=== PATIENT | male | born 1965 | race Caucasian/White ===

== ENCOUNTER 2018-07-11 21:19 | Inpatient (IN) | payer OTHER ==
[2018-07-11 23:41] LABS: ADD MAN DIFF? NO
[2018-07-11 23:43] LABS: ABNORMAL IP MESSAGE 1; BASOPHIL # 0.1 10^3/ul (0.0-0.1); BASOPHILS % 0.3 % (0.0-2.0); EOSINOPHILS # 0.2 10^3/ul (0.0-0.5); EOSINOPHILS % 0.9 % (0.0-7.0); HEMATOCRIT 37.1 % (42.0-52.0); HEMOGLOBIN 12.9 g/dl (14.0-18.0); LYMPHOCYTES # 1.7 10^3/ul (0.8-2.9); LYMPHOCYTES % 7.3 % (15.0-51.0); MEAN CORPUSCULAR HEMOGLOBIN 29.9 pg (29.0-33.0); MEAN CORPUSCULAR HGB CONC 34.8 g/dl (32.0-37.0); MEAN CORPUSCULAR VOLUME 85.9 fl (82.0-101.0); MEAN PLATELET VOLUME 9.6 fl (7.4-10.4); MONOCYTE # 1.8 10^3/ul (0.3-0.9); MONOCYTES % 7.9 % (0.0-11.0); NEUTROPHILS % 82.6 % (39.0-77.0); PLATELET COUNT 315 10^3/UL (140-415); POSITIVE DIFF @See below; RED BLOOD COUNT 4.32 10^6/ul (4.70-6.10); RED CELL DISTRIBUTION WIDTH 12.5 % (11.5-14.5)
[2018-07-11 23:47] LABS: INR 1.22; PROTIME 15.6 Sec (11.9-14.9); PT RATIO 1.2
[2018-07-11] MEDS: SODIUM CHLORIDE 0.9% 1L BAG IV* (23:47)
[2018-07-11 23:48] LABS: PARTIAL THROMBOPLASTIN TIME 34.5 Sec (23.0-35.0)
[2018-07-11] MEDS: CEFEPIME 2GM/50 ML (PMX) 50 ML IVPB (23:48)
[2018-07-11 23:49] LABS: ALANINE AMINOTRANSFERASE 16 IU/L (13-69); ALBUMIN 3.4 g/dl (3.3-4.9); ALBUMIN/GLOBULIN RATIO 0.89; ALKALINE PHOSPHATASE 103 IU/L (42-121); ANION GAP 17 (8-16); ASPARTATE AMINO TRANSFERASE 18 IU/L (15-46); BILIRUBIN,INDIRECT 0.6 mg/dl (0-1.1); BILIRUBIN,TOTAL 0.6 mg/dl (0.2-1.3); BLOOD UREA NITROGEN 16 mg/dl (7-20); CALCIUM 9.8 mg/dl (8.4-10.2); CARBON DIOXIDE 23 mmol/L (21-31); CHLORIDE 97 mmol/L (97-110); CREATININE 0.76 mg/dl (0.61-1.24); GLUCOSE 316 mg/dl (70-220); POTASSIUM 3.8 mmol/L (3.5-5.1); SODIUM 133 mmol/L (135-144); TOTAL PROTEIN 7.2 g/dl (6.1-8.1)
[2018-07-11 23:53] LABS: LACTIC ACID 1.5 mmol/L (0.5-2.0)
[2018-07-12] LABS: TROPONIN-I < 0.012 ng/ml (0.000-0.120)
[2018-07-12 01:02] LABS: ADD UMIC NO; UR ASCORBIC ACID NEGATIVE (NEGATIVE); UR BILIRUBIN (Dip) NEGATIVE (NEGATIVE); UR BLOOD (Dip) NEGATIVE (NEGATIVE); UR CLARITY CLEAR (CLEAR); UR COLOR YELLOW (YELLOW); UR GLUCOSE (Dip) 3+ mg/dL (NEGATIVE); UR KETONES (Dip) NEGATIVE (NEGATIVE); UR LEUKOCYTE ESTERASE (Dip) NEGATIVE Leu/ul (NEGATIVE); UR NITRITE (Dip) NEGATIVE (NEGATIVE); UR SPECIFIC GRAVITY (Dip) 1.017 (1.003-1.030); UR TOTAL PROTEIN (Dip) NEGATIVE (NEGATIVE); UR UROBILINOGEN (Dip) 1+ mg/dL (NEGATIVE)
[2018-07-12 02:00] LABS: LACTIC ACID 1.5 mmol/L (0.5-2.0)
[2018-07-12 03:45] LABS: LACTIC ACID 1.3 mmol/L (0.5-2.0)
[2018-07-12] MEDS: LIDOCAINE 2% JELLY 30 ML TOP (05:48)
[2018-07-12] MEDS: morphine 4 MG/ML VIAL IV (05:48)
[2018-07-12] MEDS: AZITHROMYCIN 500MG/NS (PMX) 250 ML IVPB (07:43)
[2018-07-12] MEDS ORDERED: ONDANSETRON 4 MG INJ IV (10:30)
[2018-07-12] MEDS ORDERED: ZOLPIDEM 5 MG TAB PO (10:30)
[2018-07-12] MEDS: ACCU-CHEK XX ×3 (11:30→20:40)
[2018-07-12] MEDS ORDERED: DEXTROSE 50% 50 ML SYRINGE IV ×2 (13:00)
[2018-07-12] MEDS ORDERED: GLUCAGON 1 MG INJ IM (13:00)
[2018-07-12] MEDS ORDERED: GLUCOSE GEL 15 GRAM TUBE BUCCAL (13:00)
[2018-07-12] MEDS ORDERED: GLUCOSE GEL 15 GRAM TUBE PO ×2 (13:00)
[2018-07-12] MEDS: CEFTRIAXONE 1 GM/50 ML (PMX) 50 ML IVPB (14:24)
[2018-07-12] MEDS: SOD CHLORIDE 0.9% 1,000 ML IV ×3 (14:24→23:43)
[2018-07-12] MEDS ORDERED: PIOGLITAZONE 45 MG TAB PO (14:30)
[2018-07-12] MEDS: DOCUSATE SODIUM 100 MG CAP PO ×2 (15:08→20:40)
[2018-07-12] MEDS: PIOGLITAZONE 15 MG TAB PO (15:10)
[2018-07-12] MEDS: AMLODIPINE 5 MG TAB PO (15:11)
[2018-07-12] MEDS: BENAZEPRIL 40 MG TAB PO (15:11)
[2018-07-12] MEDS: ACETAMINOPHEN 325 MG TAB PO (15:15)
[2018-07-12] MEDS: metFORMIN 500 MG TAB PO (17:23)
[2018-07-12] MEDS: FAMOTIDINE 20 MG TAB PO (20:40)
[2018-07-12] MEDS: HYDROCODONE/APAP (5/325) TAB PO (21:42)
[2018-07-13] MEDS: ACETAMINOPHEN 325 MG TAB PO ×3 (03:19→17:55)
[2018-07-13] MEDS: HYDROCODONE/APAP (5/325) TAB PO ×2 (04:29→06:24)
[2018-07-13] MEDS ORDERED: HYDROCODONE/APAP (5/325) TAB PO (06:00)
[2018-07-13 06:23] LABS: ADD MAN DIFF? NO
[2018-07-13 06:27] LABS: WHITE BLOOD COUNT 19.1 10^3/ul (4.8-10.8)
[2018-07-13 06:27] LABS: BASOPHIL # 0.1 10^3/ul (0.0-0.1); BASOPHILS % 0.4 % (0.0-2.0); EOSINOPHILS # 0.6 10^3/ul (0.0-0.5); HEMATOCRIT 33.1 % (42.0-52.0); HEMOGLOBIN 11.4 g/dl (14.0-18.0); LYMPHOCYTES # 2.3 10^3/ul (0.8-2.9); LYMPHOCYTES % 12.1 % (15.0-51.0); MEAN CORPUSCULAR HGB CONC 34.4 g/dl (32.0-37.0); MEAN CORPUSCULAR VOLUME 87.1 fl (82.0-101.0); MEAN PLATELET VOLUME 8.9 fl (7.4-10.4); MONOCYTE # 1.3 10^3/ul (0.3-0.9); MONOCYTES % 6.8 % (0.0-11.0); NEUTROPHIL # 14.6 10^3/ul (1.6-7.5); NEUTROPHILS % 76.4 % (39.0-77.0); PLATELET COUNT 307 10^3/UL (140-415); RED CELL DISTRIBUTION WIDTH 12.8 % (11.5-14.5)
[2018-07-13 06:46] LABS: INR 1.24; PROTIME 15.8 Sec (11.9-14.9); PT RATIO 1.2
[2018-07-13 07:05] LABS: ANION GAP 14 (8-16); CHOL/HDL RATIO 10.3 RATIO; LDL CHOLESTEROL,CALCULATED 85 mg/dl
[2018-07-13 07:12] LABS: BLOOD UREA NITROGEN 10 mg/dl (7-20); CALCIUM 8.7 mg/dl (8.4-10.2); CARBON DIOXIDE 22 mmol/L (21-31); CHLORIDE 100 mmol/L (97-110); CHOLESTEROL 145 mg/dl (100-200); CREATININE 0.55 mg/dl (0.61-1.24); GLUCOSE 183 mg/dl (70-220); HDL CHOLESTEROL 14 mg/dl (28-71); MAGNESIUM 1.7 mg/dl (1.7-2.5); PHOSPHORUS 2.5 mg/dl (2.5-4.9); POTASSIUM 3.3 mmol/L (3.5-5.1); SODIUM 133 mmol/L (135-144); TRIGLYCERIDES 231 mg/dl (0-149)
[2018-07-13] MEDS: ACCU-CHEK XX ×4 (07:30→21:00)
[2018-07-13] MEDS: AZITHROMYCIN 500MG/NS (PMX) 250 ML IVPB (08:02)
[2018-07-13] MEDS: DOCUSATE SODIUM 100 MG CAP PO ×2 (08:02→20:59)
[2018-07-13] MEDS: SOD CHLORIDE 0.9% 1,000 ML IV ×2 (08:02→21:00)
[2018-07-13] MEDS: metFORMIN 500 MG TAB PO (08:03)
[2018-07-13] MEDS: FAMOTIDINE 20 MG TAB PO ×2 (08:03→20:59)
[2018-07-13] MEDS: PIOGLITAZONE 15 MG TAB PO (08:04)
[2018-07-13 08:06] LABS: HEMOGLOBIN A1C 9.6 % (0-5.9)
[2018-07-13] MEDS: AMLODIPINE 5 MG TAB PO (08:08)
[2018-07-13] MEDS: BENAZEPRIL 40 MG TAB PO (08:09)
[2018-07-13] MEDS ORDERED: VANCOMYCIN IV PER PHARMACY XX (10:30)
[2018-07-13] MEDS ORDERED: HYDROCORTISONE 25 MG SUPP PR (10:30)
[2018-07-13] MEDS: POLYETHYLENE GLYCOL 17 GM PACKET PO (11:41)
[2018-07-13] MEDS: POTASSIUM CHLORIDE (SR) 20 MEQ TAB PO (11:42)
[2018-07-13] MEDS: ASCORBIC ACID 500 MG TAB PO (11:42)
[2018-07-13] MEDS: FERROUS SULFATE (EC) 325 MG TAB PO ×2 (11:42→20:59)
[2018-07-13] MEDS: BARIUM SULF 2% 450 ML BTL (BERRY SMOOTHIE) PO (12:45)
[2018-07-13] MEDS: oxyCODONE 5 MG TAB PO ×2 (13:42→19:41)
[2018-07-13] MEDS: LEVOFLOXACIN 500MG/D5W (PMX) 100 ML IVPB (13:42)
[2018-07-13] MEDS: VANCOMYCIN 2 GM in SOD CHLORIDE 0.9% 500 ML IVPB (15:17)
[2018-07-13] MEDS: metFORMIN 850 MG TAB PO (17:14)
[2018-07-13] MEDS: INSULIN ASPART [NOVOLOG] 3 ML PEN SC ×2 (17:56→21:03)
[2018-07-13] MEDS: ATORVASTATIN 10 MG TAB PO (20:59)
[2018-07-13] MEDS: INSULIN GLARGINE [LANTus] (100 UNITS/ML) SYG SC (21:04)
[2018-07-14] MEDS: ACETAMINOPHEN 325 MG TAB PO ×4 (00:39→17:01)
[2018-07-14] MEDS: VANCOMYCIN 1.25 GM in SOD CHLORIDE 0.9% 250 ML IVPB ×3 (00:40→17:14)
[2018-07-14] MEDS: SOD CHLORIDE 0.9% 1,000 ML IV ×2 (00:42→17:11)
[2018-07-14] MEDS: ACCU-CHEK XX ×5 (01:56→21:00)
[2018-07-14] MEDS: oxyCODONE 5 MG TAB PO ×4 (06:03→21:26)
[2018-07-14 06:12] LABS: ADD MAN DIFF? NO
[2018-07-14 06:25] LABS: BASOPHIL # 0.1 10^3/ul (0.0-0.1); BASOPHILS % 0.4 % (0.0-2.0); EOSINOPHILS # 0.5 10^3/ul (0.0-0.5); EOSINOPHILS % 2.7 % (0.0-7.0); HEMOGLOBIN 11.3 g/dl (14.0-18.0); LYMPHOCYTES # 2.1 10^3/ul (0.8-2.9); LYMPHOCYTES % 10.6 % (15.0-51.0); MEAN CORPUSCULAR HEMOGLOBIN 29.9 pg (29.0-33.0); MEAN CORPUSCULAR HGB CONC 34.2 g/dl (32.0-37.0); MEAN CORPUSCULAR VOLUME 87.3 fl (82.0-101.0); MEAN PLATELET VOLUME 9.3 fl (7.4-10.4); MONOCYTE # 1.2 10^3/ul (0.3-0.9); MONOCYTES % 5.7 % (0.0-11.0); NEUTROPHIL # 15.8 10^3/ul (1.6-7.5); NEUTROPHILS % 78.7 % (39.0-77.0); PLATELET COUNT 352 10^3/UL (140-415); RED BLOOD COUNT 3.78 10^6/ul (4.70-6.10); RED CELL DISTRIBUTION WIDTH 13.1 % (11.5-14.5)
[2018-07-14 07:08] LABS: ANION GAP 12 (8-16); BLOOD UREA NITROGEN 8 mg/dl (7-20); CALCIUM 8.6 mg/dl (8.4-10.2); CARBON DIOXIDE 25 mmol/L (21-31); CHLORIDE 103 mmol/L (97-110); GLUCOSE 197 mg/dl (70-220); MAGNESIUM 1.8 mg/dl (1.7-2.5); POTASSIUM 3.9 mmol/L (3.5-5.1); SODIUM 136 mmol/L (135-144)
[2018-07-14] MEDS: FERROUS SULFATE (EC) 325 MG TAB PO ×2 (08:05→21:19)
[2018-07-14] MEDS: PIOGLITAZONE 15 MG TAB PO (08:05)
[2018-07-14] MEDS: DOCUSATE SODIUM 100 MG CAP PO ×2 (08:05→21:19)
[2018-07-14] MEDS: FAMOTIDINE 20 MG TAB PO ×2 (08:05→21:19)
[2018-07-14] MEDS: ASCORBIC ACID 500 MG TAB PO (08:06)
[2018-07-14] MEDS: POLYETHYLENE GLYCOL 17 GM PACKET PO (08:06)
[2018-07-14] MEDS: INSULIN ASPART [NOVOLOG] 3 ML PEN SC ×4 (08:08→21:26)
[2018-07-14] MEDS: BENAZEPRIL 40 MG TAB PO (08:09)
[2018-07-14] MEDS: AMLODIPINE 5 MG TAB PO (08:09)
[2018-07-14] MEDS: THIAMINE 100 MG TAB PO (11:27)
[2018-07-14] MEDS: REPAGLINIDE 1 MG TAB PO ×2 (12:32→17:00)
[2018-07-14] MEDS: LEVOFLOXACIN 500MG/D5W (PMX) 100 ML IVPB (12:32)
[2018-07-14 16:24] LABS: IRON 17 ug/dl (35-150)
[2018-07-14 16:34] LABS: % IRON SATURATION 6 % SAT (22-52); TOTAL IRON BINDING CAPACITY 271 ug/dl (241-421)
[2018-07-14 16:35] LABS: VANCOMYCIN,TROUGH 8.5 ug/ml (10.0-20.0)
[2018-07-14 17:12] LABS: HEPATITIS C VIRAL ANTIBODY NEGATIVE (NEGATIVE)
[2018-07-14] MEDS: INSULIN GLARGINE [LANTus] (100 UNITS/ML) SYG SC (20:21)
[2018-07-14] MEDS: ATORVASTATIN 10 MG TAB PO (21:19)
[2018-07-14] MEDS: CEFEPIME 2GM/50 ML (PMX) 50 ML IVPB (21:19)
[2018-07-15] MEDS: ACETAMINOPHEN 325 MG TAB PO ×5 (00:08→23:25)
[2018-07-15] MEDS: VANCOMYCIN 1.75 GM in SOD CHLORIDE 0.9% 500 ML IVPB ×3 (01:02→19:42)
[2018-07-15] MEDS: ACCU-CHEK XX ×5 (02:00→21:32)
[2018-07-15 04:56] LABS: ADD MAN DIFF? NO
[2018-07-15 05:08] LABS: WHITE BLOOD COUNT 21.9 10^3/ul (4.8-10.8)
[2018-07-15 05:08] LABS: BASOPHIL # 0.1 10^3/ul (0.0-0.1); BASOPHILS % 0.5 % (0.0-2.0); EOSINOPHILS # 1.1 10^3/ul (0.0-0.5); EOSINOPHILS % 4.8 % (0.0-7.0); HEMATOCRIT 31.1 % (42.0-52.0); HEMOGLOBIN 10.8 g/dl (14.0-18.0); LYMPHOCYTES # 2.3 10^3/ul (0.8-2.9); LYMPHOCYTES % 10.6 % (15.0-51.0); MEAN CORPUSCULAR HEMOGLOBIN 29.9 pg (29.0-33.0); MEAN CORPUSCULAR HGB CONC 34.7 g/dl (32.0-37.0); MEAN CORPUSCULAR VOLUME 86.1 fl (82.0-101.0); MONOCYTE # 1.4 10^3/ul (0.3-0.9); MONOCYTES % 6.4 % (0.0-11.0); NEUTROPHIL # 16.6 10^3/ul (1.6-7.5); NEUTROPHILS % 75.8 % (39.0-77.0); PLATELET COUNT 344 10^3/UL (140-415); RED BLOOD COUNT 3.61 10^6/ul (4.70-6.10); RED CELL DISTRIBUTION WIDTH 13.1 % (11.5-14.5)
[2018-07-15 05:41] LABS: ANION GAP 13 (8-16); BLOOD UREA NITROGEN 7 mg/dl (7-20); CALCIUM 8.6 mg/dl (8.4-10.2); CARBON DIOXIDE 25 mmol/L (21-31); CHLORIDE 101 mmol/L (97-110); CREATININE 0.58 mg/dl (0.61-1.24); GLUCOSE 152 mg/dl (70-220); POTASSIUM 3.4 mmol/L (3.5-5.1); SODIUM 136 mmol/L (135-144)
[2018-07-15] MEDS ORDERED: SEVOFLURANE 15 MIN (07:00)
[2018-07-15] MEDS ORDERED: LIDOCAINE 2% (SDV) 5 ML INJ (07:00)
[2018-07-15] MEDS: ASCORBIC ACID 500 MG TAB PO (08:21)
[2018-07-15] MEDS: PIOGLITAZONE 15 MG TAB PO (08:21)
[2018-07-15] MEDS: THIAMINE 100 MG TAB PO (08:21)
[2018-07-15] MEDS: BENAZEPRIL 40 MG TAB PO (08:22)
[2018-07-15] MEDS: DOCUSATE SODIUM 100 MG CAP PO ×2 (08:22→21:32)
[2018-07-15] MEDS: FERROUS SULFATE (EC) 325 MG TAB PO ×2 (08:22→21:32)
[2018-07-15] MEDS: FAMOTIDINE 20 MG TAB PO ×2 (08:22→21:32)
[2018-07-15] MEDS: REPAGLINIDE 1 MG TAB PO ×3 (08:22→17:35)
[2018-07-15] MEDS: AMLODIPINE 5 MG TAB PO (08:22)
[2018-07-15] MEDS: POLYETHYLENE GLYCOL 17 GM PACKET PO (08:22)
[2018-07-15] MEDS: INSULIN ASPART [NOVOLOG] 3 ML PEN SC ×4 (08:23→21:31)
[2018-07-15] MEDS: CEFEPIME 2GM/50 ML (PMX) 50 ML IVPB ×2 (08:24→23:24)
[2018-07-15] MEDS: LACTATED RINGER'S 1,000 ML IV (09:45)
[2018-07-15] MEDS: POTASSIUM CHLORIDE 100 ML IVPB ×6 (11:31→22:36)
[2018-07-15] MEDS: LEVOFLOXACIN 500MG/D5W (PMX) 100 ML IVPB (14:07)
[2018-07-15] MEDS ORDERED: MIDAZOLAM 1 MG/ML 2 ML INJ ×2 (15:56→16:20)
[2018-07-15] MEDS ORDERED: DIPHENHYDRAMINE 50 MG INJ IV (16:00)
[2018-07-15] MEDS ORDERED: FENTAnyl 50 MCG/ML VIAL IV ×3 (16:00)
[2018-07-15] MEDS ORDERED: MEPERIDINE 25 MG INJ IV (16:00)
[2018-07-15] MEDS ORDERED: PROCHLORPERAZINE 10 MG INJ IV (16:00)
[2018-07-15] MEDS ORDERED: ONDANSETRON 4 MG INJ IV ×2 (16:00→17:30)
[2018-07-15] MEDS ORDERED: HYDROmorphONE 1 MG/5 ML IV SYRINGE IV ×3 (16:00)
[2018-07-15] MEDS ORDERED: FENTAnyl 50 MCG/ML VIAL (16:03)
[2018-07-15] MEDS ORDERED: SUCCINYLCHOLINE CHLORIDE 100 MG/5 ML SYG IV (16:18)
[2018-07-15] MEDS ORDERED: PROPOFOL 20 ML (16:18)
[2018-07-15] MEDS ORDERED: ROCURONIUM 50 MG INJ (16:18)
[2018-07-15] MEDS ORDERED: ONDANSETRON 4 MG INJ (16:38)
[2018-07-15] MEDS ORDERED: FAMOTIDINE 20 MG INJ (16:38)
[2018-07-15] MEDS ORDERED: HYDROmorphONE 2 MG/ML SYG (16:45)
[2018-07-15] MEDS ORDERED: SUGAMMADEX SODIUM 200 MG/2 ML VIAL IV (16:45)
[2018-07-15] MEDS ORDERED: ACETAMINOPHEN 1000MG/100ML IV 100 ML (17:03)
[2018-07-15] MEDS: BUPIVACAINE 0.25%/EPI (SDV) 30 ML INJ (17:05)
[2018-07-15] MEDS ORDERED: KETOROLAC 30 MG INJ (17:06)
[2018-07-15] MEDS: SOD CHLORIDE 0.9% 1,000 ML IV (19:51)
[2018-07-15] MEDS: INSULIN GLARGINE [LANTus] (100 UNITS/ML) SYG SC (21:31)
[2018-07-15] MEDS: ATORVASTATIN 10 MG TAB PO (21:32)
[2018-07-16] MEDS: VANCOMYCIN 1.75 GM in SOD CHLORIDE 0.9% 500 ML IVPB ×2 (00:19→05:57)
[2018-07-16] MEDS: ACCU-CHEK XX ×5 (02:16→20:41)
[2018-07-16] MEDS: oxyCODONE 5 MG TAB PO ×2 (04:13→08:07)
[2018-07-16 04:50] LABS: ADD MAN DIFF? NO
[2018-07-16 04:55] LABS: WHITE BLOOD COUNT 20.1 10^3/ul (4.8-10.8)
[2018-07-16 04:55] LABS: BASOPHIL # 0.1 10^3/ul (0.0-0.1); BASOPHILS % 0.4 % (0.0-2.0); EOSINOPHILS # 1.1 10^3/ul (0.0-0.5); EOSINOPHILS % 5.2 % (0.0-7.0); HEMATOCRIT 32.2 % (42.0-52.0); HEMOGLOBIN 11.1 g/dl (14.0-18.0); LYMPHOCYTES # 1.7 10^3/ul (0.8-2.9); LYMPHOCYTES % 8.6 % (15.0-51.0); MEAN CORPUSCULAR HEMOGLOBIN 29.8 pg (29.0-33.0); MEAN CORPUSCULAR HGB CONC 34.5 g/dl (32.0-37.0); MEAN CORPUSCULAR VOLUME 86.3 fl (82.0-101.0); MONOCYTE # 1.1 10^3/ul (0.3-0.9); MONOCYTES % 5.3 % (0.0-11.0); NEUTROPHIL # 15.9 10^3/ul (1.6-7.5); NEUTROPHILS % 78.8 % (39.0-77.0); PLATELET COUNT 385 10^3/UL (140-415); RED BLOOD COUNT 3.73 10^6/ul (4.70-6.10); RED CELL DISTRIBUTION WIDTH 13.6 % (11.5-14.5)
[2018-07-16] MEDS: ACETAMINOPHEN 325 MG TAB PO ×6 (05:11→23:59)
[2018-07-16 05:20] LABS: VANCOMYCIN,TROUGH 11.9 ug/ml (10.0-20.0)
[2018-07-16 05:22] LABS: ANION GAP 12 (8-16); BLOOD UREA NITROGEN 13 mg/dl (7-20); CALCIUM 8.7 mg/dl (8.4-10.2); CARBON DIOXIDE 25 mmol/L (21-31); CHLORIDE 100 mmol/L (97-110); CREATININE 0.68 mg/dl (0.61-1.24); GLUCOSE 251 mg/dl (70-220); POTASSIUM 3.6 mmol/L (3.5-5.1); SODIUM 133 mmol/L (135-144)
[2018-07-16] MEDS: INSULIN ASPART [NOVOLOG] 3 ML PEN SC ×4 (08:06→20:41)
[2018-07-16] MEDS: POLYETHYLENE GLYCOL 17 GM PACKET PO (08:07)
[2018-07-16] MEDS: FERROUS SULFATE (EC) 325 MG TAB PO ×2 (08:07→20:40)
[2018-07-16] MEDS: PIOGLITAZONE 15 MG TAB PO (08:07)
[2018-07-16] MEDS: FAMOTIDINE 20 MG TAB PO ×2 (08:07→20:40)
[2018-07-16] MEDS: REPAGLINIDE 1 MG TAB PO ×3 (08:07→16:59)
[2018-07-16] MEDS: ASCORBIC ACID 500 MG TAB PO (08:08)
[2018-07-16] MEDS: DOCUSATE SODIUM 100 MG CAP PO ×2 (08:08→20:40)
[2018-07-16] MEDS: BENAZEPRIL 40 MG TAB PO (08:08)
[2018-07-16] MEDS: AMLODIPINE 5 MG TAB PO (08:08)
[2018-07-16] MEDS: THIAMINE 100 MG TAB PO (08:08)
[2018-07-16] MEDS: CEFEPIME 2GM/50 ML (PMX) 50 ML IVPB (09:12)
[2018-07-16] MEDS: INSULIN GLARGINE [LANTus] (100 UNITS/ML) SYG SC ×2 (11:43→20:39)
[2018-07-16] MEDS: morphine 2 MG INJ IV ×2 (12:33→16:57)
[2018-07-16] MEDS ORDERED: VANCOMYCIN 1.75 GM in SOD CHLORIDE 0.9% 500 ML IVPB (14:00)
[2018-07-16] MEDS: metroNIDAZOLE 500 MG TAB PO ×2 (14:00→20:40)
[2018-07-16] MEDS: SOD CHLORIDE 0.9% 1,000 ML IV (18:50)
[2018-07-16] MEDS: ATORVASTATIN 10 MG TAB PO (20:40)
[2018-07-17] MEDS: ACCU-CHEK XX ×5 (01:56→21:00)
[2018-07-17] MEDS: ACETAMINOPHEN 325 MG TAB PO ×6 (04:17→23:45)
[2018-07-17] MEDS: metroNIDAZOLE 500 MG TAB PO ×2 (05:11→13:54)
[2018-07-17] MEDS: LEVOFLOXACIN 750 MG TABLET PO (05:11)
[2018-07-17] MEDS: SOD CHLORIDE 0.9% 1,000 ML IV (05:15)
[2018-07-17 06:54] LABS: ADD MAN DIFF? NO
[2018-07-17 07:03] LABS: WHITE BLOOD COUNT 24.6 10^3/ul (4.8-10.8)
[2018-07-17 07:03] LABS: BASOPHIL # 0.1 10^3/ul (0.0-0.1); BASOPHILS % 0.3 % (0.0-2.0); EOSINOPHILS # 0.6 10^3/ul (0.0-0.5); EOSINOPHILS % 2.4 % (0.0-7.0); HEMATOCRIT 30.8 % (42.0-52.0); HEMOGLOBIN 10.7 g/dl (14.0-18.0); LYMPHOCYTES # 1.9 10^3/ul (0.8-2.9); LYMPHOCYTES % 7.8 % (15.0-51.0); MEAN CORPUSCULAR HEMOGLOBIN 29.4 pg (29.0-33.0); MEAN CORPUSCULAR HGB CONC 34.7 g/dl (32.0-37.0); MEAN CORPUSCULAR VOLUME 84.6 fl (82.0-101.0); MEAN PLATELET VOLUME 8.9 fl (7.4-10.4); MONOCYTE # 1.5 10^3/ul (0.3-0.9); MONOCYTES % 6.1 % (0.0-11.0); NEUTROPHIL # 19.8 10^3/ul (1.6-7.5); NEUTROPHILS % 80.7 % (39.0-77.0); PLATELET COUNT 395 10^3/UL (140-415); RED BLOOD COUNT 3.64 10^6/ul (4.70-6.10); RED CELL DISTRIBUTION WIDTH 13.2 % (11.5-14.5)
[2018-07-17 07:29] LABS: ANION GAP 13 (8-16); BLOOD UREA NITROGEN 7 mg/dl (7-20); CALCIUM 8.7 mg/dl (8.4-10.2); CARBON DIOXIDE 25 mmol/L (21-31); CHLORIDE 101 mmol/L (97-110); CREATININE 0.56 mg/dl (0.61-1.24); GLUCOSE 140 mg/dl (70-220); MAGNESIUM 1.7 mg/dl (1.7-2.5); POTASSIUM 3.1 mmol/L (3.5-5.1); SODIUM 136 mmol/L (135-144)
[2018-07-17] MEDS: INSULIN ASPART [NOVOLOG] 3 ML PEN SC ×4 (08:00→21:00)
[2018-07-17] MEDS: POLYETHYLENE GLYCOL 17 GM PACKET PO (09:45)
[2018-07-17] MEDS: PIOGLITAZONE 15 MG TAB PO (09:45)
[2018-07-17] MEDS: FERROUS SULFATE (EC) 325 MG TAB PO ×2 (09:45→21:09)
[2018-07-17] MEDS: DOCUSATE SODIUM 100 MG CAP PO ×2 (09:45→21:08)
[2018-07-17] MEDS: REPAGLINIDE 1 MG TAB PO ×3 (09:45→17:36)
[2018-07-17] MEDS: ASCORBIC ACID 500 MG TAB PO (09:45)
[2018-07-17] MEDS: FAMOTIDINE 20 MG TAB PO ×2 (09:46→21:08)
[2018-07-17] MEDS: THIAMINE 100 MG TAB PO (09:46)
[2018-07-17] MEDS: BENAZEPRIL 40 MG TAB PO (09:46)
[2018-07-17] MEDS: AMLODIPINE 5 MG TAB PO (09:47)
[2018-07-17] MEDS: IOHEXOL 300MG/ML 150 ML BTL (09:47)
[2018-07-17] MEDS: SOD CHLORIDE 0.9% 100 ML (09:47)
[2018-07-17] MEDS: oxyCODONE 5 MG TAB PO (09:52)
[2018-07-17] MEDS: MAGNESIUM SULFATE 1 GM/D5W 100 ML IVPB (16:45)
[2018-07-17] MEDS: POTASSIUM CHLORIDE (SR) 20 MEQ TAB PO ×2 (16:46→18:41)
[2018-07-17] MEDS: PIPER-TAZO 3.375 GM IV (PMX) 100 ML IVPB ×2 (18:41→23:44)
[2018-07-17] MEDS: ATORVASTATIN 10 MG TAB PO (21:08)
[2018-07-17] MEDS: INSULIN GLARGINE [LANTus] (100 UNITS/ML) SYG SC (21:10)
[2018-07-18] MEDS: oxyCODONE 5 MG TAB PO ×3 (00:40→20:54)
[2018-07-18] MEDS: ACCU-CHEK XX ×5 (02:00→21:05)
[2018-07-18] MEDS: ACETAMINOPHEN 325 MG TAB PO ×3 (05:46→17:34)
[2018-07-18] MEDS: PIPER-TAZO 3.375 GM IV (PMX) 100 ML IVPB ×3 (05:46→17:59)
[2018-07-18] MEDS: INSULIN ASPART [NOVOLOG] 3 ML PEN SC ×4 (08:33→20:43)
[2018-07-18] MEDS: POLYETHYLENE GLYCOL 17 GM PACKET PO (08:33)
[2018-07-18] MEDS: FERROUS SULFATE (EC) 325 MG TAB PO ×2 (08:34→20:44)
[2018-07-18] MEDS: PIOGLITAZONE 15 MG TAB PO (08:34)
[2018-07-18] MEDS: REPAGLINIDE 1 MG TAB PO ×3 (08:35→17:31)
[2018-07-18] MEDS: AMLODIPINE 5 MG TAB PO (08:35)
[2018-07-18] MEDS: ASCORBIC ACID 500 MG TAB PO (08:35)
[2018-07-18] MEDS: BENAZEPRIL 40 MG TAB PO (08:35)
[2018-07-18] MEDS: FAMOTIDINE 20 MG TAB PO ×2 (08:35→20:44)
[2018-07-18] MEDS: DOCUSATE SODIUM 100 MG CAP PO ×2 (08:35→20:44)
[2018-07-18 08:38] LABS: ABNORMAL IP MESSAGE 1; HEMATOCRIT 34.4 % (42.0-52.0); HEMOGLOBIN 11.9 g/dl (14.0-18.0); MEAN CORPUSCULAR HEMOGLOBIN 29.5 pg (29.0-33.0); MEAN CORPUSCULAR HGB CONC 34.6 g/dl (32.0-37.0); MEAN CORPUSCULAR VOLUME 85.1 fl (82.0-101.0); MEAN PLATELET VOLUME 8.6 fl (7.4-10.4); PLATELET COUNT 418 10^3/UL (140-415); POSITIVE DIFF @See below; RED BLOOD COUNT 4.04 10^6/ul (4.70-6.10); RED CELL DISTRIBUTION WIDTH 13.4 % (11.5-14.5)
[2018-07-18 08:38] LABS: WHITE BLOOD COUNT 32.9 10^3/ul (4.8-10.8)
[2018-07-18] MEDS: THIAMINE 100 MG TAB PO (08:45)
[2018-07-18 08:51] LABS: ADD MAN DIFF? YES
[2018-07-18 08:54] LABS: MAGNESIUM 1.7 mg/dl (1.7-2.5)
[2018-07-18 09:01] LABS: ANION GAP 14 (8-16); BLOOD UREA NITROGEN 10 mg/dl (7-20); CARBON DIOXIDE 25 mmol/L (21-31); CHLORIDE 99 mmol/L (97-110); CREATININE 0.59 mg/dl (0.61-1.24); GLUCOSE 200 mg/dl (70-220); POTASSIUM 3.6 mmol/L (3.5-5.1); SODIUM 134 mmol/L (135-144)
[2018-07-18 09:50] LABS: ANISOCYTOSIS 1+ (0-0); BAND NEUTROPHILS #M 1.3 10^3/ul (0.0-0.6); BAND NEUTROPHILS % (M) 4 % (0-4); EOSINOPHILS % (M) 1 % (0-7); HYPOCHROMASIA 1+ (0-0); LYMPHOCYTES #M 0.3 10^3/ul (0.8-2.9); LYMPHOCYTES % (M) 1 % (15-51); MONOCYTE #M 1.9 10^3/ul (0.3-0.9); MONOCYTES % (M) 6 % (0-11); PLATELET ESTIMATE NORMAL; SEG NEUT #M 29.4 10^3/ul (1.6-7.5); SEGMENTED NEUTROPHILS (M) % 88 % (39-77); SMUDGE%M 2 % (0-0); TARGET CELLS 1+ (0-0)
[2018-07-18] MEDS ORDERED: VANCOMYCIN IV PER PHARMACY XX (11:00)
[2018-07-18] MEDS: VANCOMYCIN 1.75 GM in SOD CHLORIDE 0.9% 500 ML IVPB ×2 (13:46→20:44)
[2018-07-18] MEDS: LIDOCAINE 1%/EPI (MDV) 50 ML INJ INJ (13:46)
[2018-07-18] MEDS: LIDOCAINE 1%/EPI (1:100,000) (MDV) 20 ML INJ (14:00)
[2018-07-18] MEDS: INSULIN GLARGINE [LANTus] (100 UNITS/ML) SYG SC (20:42)
[2018-07-18] MEDS: ATORVASTATIN 10 MG TAB PO (20:44)
[2018-07-19] MEDS: ACETAMINOPHEN 325 MG TAB PO ×4 (00:55→17:42)
[2018-07-19] MEDS: PIPER-TAZO 3.375 GM IV (PMX) 100 ML IVPB ×4 (00:55→17:42)
[2018-07-19] MEDS: ACCU-CHEK XX ×5 (01:52→20:43)
[2018-07-19] MEDS: oxyCODONE 5 MG TAB PO ×4 (04:10→20:05)
[2018-07-19] MEDS: VANCOMYCIN 1.75 GM in SOD CHLORIDE 0.9% 500 ML IVPB ×3 (05:55→20:43)
[2018-07-19 08:26] LABS: ABNORMAL IP MESSAGE 1; HEMATOCRIT 31.1 % (42.0-52.0); HEMOGLOBIN 10.8 g/dl (14.0-18.0); MEAN CORPUSCULAR HEMOGLOBIN 29.3 pg (29.0-33.0); MEAN CORPUSCULAR HGB CONC 34.7 g/dl (32.0-37.0); MEAN CORPUSCULAR VOLUME 84.5 fl (82.0-101.0); MEAN PLATELET VOLUME 8.8 fl (7.4-10.4); PLATELET COUNT 374 10^3/UL (140-415); POSITIVE DIFF @See below; RED BLOOD COUNT 3.68 10^6/ul (4.70-6.10); RED CELL DISTRIBUTION WIDTH 13.6 % (11.5-14.5)
[2018-07-19 08:26] LABS: WHITE BLOOD COUNT 27.7 10^3/ul (4.8-10.8)
[2018-07-19 08:35] LABS: ADD MAN DIFF? YES
[2018-07-19] MEDS: INSULIN ASPART [NOVOLOG] 3 ML PEN SC ×4 (08:41→20:43)
[2018-07-19] MEDS: REPAGLINIDE 1 MG TAB PO ×3 (08:42→17:42)
[2018-07-19] MEDS: ASCORBIC ACID 500 MG TAB PO (08:43)
[2018-07-19] MEDS: THIAMINE 100 MG TAB PO (08:43)
[2018-07-19] MEDS: DOCUSATE SODIUM 100 MG CAP PO ×2 (08:43→20:43)
[2018-07-19] MEDS: POLYETHYLENE GLYCOL 17 GM PACKET PO (08:43)
[2018-07-19] MEDS: FERROUS SULFATE (EC) 325 MG TAB PO ×2 (08:43→20:43)
[2018-07-19] MEDS: PIOGLITAZONE 15 MG TAB PO (08:43)
[2018-07-19] MEDS: FAMOTIDINE 20 MG TAB PO ×2 (08:43→20:43)
[2018-07-19] MEDS: AMLODIPINE 5 MG TAB PO (08:44)
[2018-07-19] MEDS: BENAZEPRIL 40 MG TAB PO (08:44)
[2018-07-19 08:49] LABS: ANION GAP 9 (5-13); BLOOD UREA NITROGEN 7 mg/dl (7-20); CALCIUM 8.5 mg/dl (8.4-10.2); CARBON DIOXIDE 26 mmol/L (21-31); CHLORIDE 100 mmol/L (97-110); CREATININE 0.51 mg/dl (0.61-1.24); GLUCOSE 168 mg/dl (70-220); POTASSIUM 3.7 mmol/L (3.5-5.1); SODIUM 135 mmol/L (135-144)
[2018-07-19 10:01] LABS: ANISOCYTOSIS 1+ (0-0); BAND NEUTROPHILS #M 1.6 10^3/ul (0.0-0.6); BAND NEUTROPHILS % (M) 6 % (0-4); EOSINOPHILS % (M) 1 % (0-7); GIANT THROMBO% (M) 1 % (0-0); LYMPHOCYTES #M 2.2 10^3/ul (0.8-2.9); LYMPHOCYTES % (M) 8 % (15-51); MONOCYTE #M 2.4 10^3/ul (0.3-0.9); MONOCYTES % (M) 9 % (0-11); MYELOCYTES #M 0.5 10^3/ul (0.0-0.0); MYELOCYTES % (M) 2 % (0-0); PLATELET ESTIMATE NORMAL; POIKILOCYTOSIS 1+ (0-0); POLYCHROMASIA 1+ (0-0); REACTIVE LYMPHOCYTES #M 0.2 10^3/ul (0.0-0.0); REACTIVE LYMPHOCYTES% (M) 1 % (0-0); SEG NEUT #M 20.7 10^3/ul (1.6-7.5); SEGMENTED NEUTROPHILS (M) % 73 % (39-77); SMUDGE%M 4 % (0-0); TARGET CELLS 1+ (0-0)
[2018-07-19 13:20] LABS: VANCOMYCIN,TROUGH 13.2 ug/ml (10.0-20.0)
[2018-07-19] MEDS: ATORVASTATIN 10 MG TAB PO (20:43)
[2018-07-19] MEDS: INSULIN GLARGINE [LANTus] (100 UNITS/ML) SYG SC (20:47)
[2018-07-20] MEDS: oxyCODONE 5 MG TAB PO ×5 (00:53→23:49)
[2018-07-20] MEDS: ACCU-CHEK XX ×5 (00:53→21:00)
[2018-07-20] MEDS: PIPER-TAZO 3.375 GM IV (PMX) 100 ML IVPB ×5 (00:53→23:49)
[2018-07-20] MEDS: ACETAMINOPHEN 325 MG TAB PO ×2 (04:38)
[2018-07-20] MEDS: VANCOMYCIN 1.75 GM in SOD CHLORIDE 0.9% 500 ML IVPB ×2 (05:41→13:38)
[2018-07-20] MEDS: POLYETHYLENE GLYCOL 17 GM PACKET PO (08:05)
[2018-07-20] MEDS: INSULIN ASPART [NOVOLOG] 3 ML PEN SC ×4 (08:06→21:00)
[2018-07-20] MEDS: PIOGLITAZONE 15 MG TAB PO ×2 (08:07→09:00)
[2018-07-20] MEDS: DOCUSATE SODIUM 100 MG CAP PO ×2 (08:08→20:48)
[2018-07-20] MEDS: REPAGLINIDE 1 MG TAB PO ×3 (08:08→17:26)
[2018-07-20] MEDS: FERROUS SULFATE (EC) 325 MG TAB PO ×2 (08:08→20:48)
[2018-07-20] MEDS: ASCORBIC ACID 500 MG TAB PO (08:08)
[2018-07-20] MEDS: FAMOTIDINE 20 MG TAB PO ×2 (08:08→20:48)
[2018-07-20] MEDS: AMLODIPINE 5 MG TAB PO (08:10)
[2018-07-20] MEDS: BENAZEPRIL 40 MG TAB PO (08:10)
[2018-07-20 10:26] LABS: ADD MAN DIFF? NO
[2018-07-20 10:29] LABS: BASOPHIL # 0.1 10^3/ul (0.0-0.1); BASOPHILS % 0.6 % (0.0-2.0); EOSINOPHILS # 0.8 10^3/ul (0.0-0.5); EOSINOPHILS % 4.3 % (0.0-7.0); HEMATOCRIT 34.1 % (42.0-52.0); HEMOGLOBIN 11.7 g/dl (14.0-18.0); LYMPHOCYTES # 1.9 10^3/ul (0.8-2.9); LYMPHOCYTES % 10.1 % (15.0-51.0); MEAN CORPUSCULAR HEMOGLOBIN 29.6 pg (29.0-33.0); MEAN CORPUSCULAR HGB CONC 34.3 g/dl (32.0-37.0); MEAN CORPUSCULAR VOLUME 86.3 fl (82.0-101.0); MEAN PLATELET VOLUME 8.7 fl (7.4-10.4); MONOCYTE # 1.5 10^3/ul (0.3-0.9); MONOCYTES % 7.6 % (0.0-11.0); NEUTROPHILS % 73.6 % (39.0-77.0); PLATELET COUNT 414 10^3/UL (140-415); RED BLOOD COUNT 3.95 10^6/ul (4.70-6.10); RED CELL DISTRIBUTION WIDTH 13.9 % (11.5-14.5)
[2018-07-20 11:33] LABS: ANION GAP 9 (5-13); BLOOD UREA NITROGEN 7 mg/dl (7-20); CALCIUM 8.7 mg/dl (8.4-10.2); CARBON DIOXIDE 28 mmol/L (21-31); CHLORIDE 98 mmol/L (97-110); CREATININE 0.54 mg/dl (0.61-1.24); GLUCOSE 220 mg/dl (70-220); SODIUM 135 mmol/L (135-144)
[2018-07-20 11:53] LABS: POTASSIUM 3.5 mmol/L (3.5-5.1)
[2018-07-20] MEDS: FLUCONAZOLE 100 MG TAB PO (15:10)
[2018-07-20] MEDS: INSULIN GLARGINE [LANTus] (100 UNITS/ML) SYG SC (20:28)
[2018-07-20] MEDS: ATORVASTATIN 10 MG TAB PO (20:48)
[2018-07-21] MEDS: ACCU-CHEK XX ×5 (02:00→21:00)
[2018-07-21] MEDS: oxyCODONE 5 MG TAB PO ×4 (03:56→22:29)
[2018-07-21 05:32] LABS: ADD MAN DIFF? NO
[2018-07-21 05:37] LABS: ABNORMAL IP MESSAGE 1; BASOPHIL # 0.1 10^3/ul (0.0-0.1); BASOPHILS % 0.5 % (0.0-2.0); EOSINOPHILS # 0.8 10^3/ul (0.0-0.5); EOSINOPHILS % 4.4 % (0.0-7.0); HEMATOCRIT 32.5 % (42.0-52.0); HEMOGLOBIN 11.1 g/dl (14.0-18.0); LYMPHOCYTES # 2.8 10^3/ul (0.8-2.9); LYMPHOCYTES % 14.5 % (15.0-51.0); MEAN CORPUSCULAR HEMOGLOBIN 29.6 pg (29.0-33.0); MEAN CORPUSCULAR HGB CONC 34.2 g/dl (32.0-37.0); MEAN CORPUSCULAR VOLUME 86.7 fl (82.0-101.0); MEAN PLATELET VOLUME 8.7 fl (7.4-10.4); MONOCYTE # 1.6 10^3/ul (0.3-0.9); MONOCYTES % 8.7 % (0.0-11.0); NEUTROPHIL # 12.9 10^3/ul (1.6-7.5); NEUTROPHILS % 68.2 % (39.0-77.0); PLATELET COUNT 446 10^3/UL (140-415); POSITIVE DIFF @See below; RED BLOOD COUNT 3.75 10^6/ul (4.70-6.10); RED CELL DISTRIBUTION WIDTH 13.8 % (11.5-14.5)
[2018-07-21] MEDS: ACETAMINOPHEN 325 MG TAB PO ×2 (05:48→11:01)
[2018-07-21] MEDS: PIPER-TAZO 3.375 GM IV (PMX) 100 ML IVPB ×3 (05:48→17:27)
[2018-07-21 06:15] LABS: ANION GAP 4 (5-13); BLOOD UREA NITROGEN 5 mg/dl (7-20); CALCIUM 8.9 mg/dl (8.4-10.2); CARBON DIOXIDE 32 mmol/L (21-31); CHLORIDE 99 mmol/L (97-110); CREATININE 0.63 mg/dl (0.61-1.24); GLUCOSE 144 mg/dl (70-220); MAGNESIUM 1.8 mg/dl (1.7-2.5); POTASSIUM 3.8 mmol/L (3.5-5.1); SODIUM 135 mmol/L (135-144)
[2018-07-21] MEDS: PIOGLITAZONE 15 MG TAB PO (09:00)
[2018-07-21] MEDS: BENAZEPRIL 40 MG TAB PO (09:10)
[2018-07-21] MEDS: FLUCONAZOLE 100 MG TAB PO (09:10)
[2018-07-21] MEDS: AMLODIPINE 5 MG TAB PO (09:10)
[2018-07-21] MEDS: POLYETHYLENE GLYCOL 17 GM PACKET PO (09:10)
[2018-07-21] MEDS: REPAGLINIDE 1 MG TAB PO ×3 (09:10→17:26)
[2018-07-21] MEDS: ASCORBIC ACID 500 MG TAB PO (09:11)
[2018-07-21] MEDS: FAMOTIDINE 20 MG TAB PO ×2 (09:11→20:19)
[2018-07-21] MEDS: FERROUS SULFATE (EC) 325 MG TAB PO ×2 (09:11→20:19)
[2018-07-21] MEDS: DOCUSATE SODIUM 100 MG CAP PO ×2 (09:11→20:19)
[2018-07-21] MEDS: INSULIN ASPART [NOVOLOG] 3 ML PEN SC ×4 (09:14→20:19)
[2018-07-21] MEDS: INSULIN GLARGINE [LANTus] (100 UNITS/ML) SYG SC (20:18)
[2018-07-21] MEDS: ATORVASTATIN 10 MG TAB PO (20:19)
[2018-07-22] MEDS: PIPER-TAZO 3.375 GM IV (PMX) 100 ML IVPB ×4 (00:10→17:37)
[2018-07-22] MEDS: ACCU-CHEK XX ×5 (01:30→20:57)
[2018-07-22] MEDS: oxyCODONE 5 MG TAB PO ×4 (02:46→19:43)
[2018-07-22 05:14] LABS: ADD MAN DIFF? NO
[2018-07-22 05:22] LABS: ABNORMAL IP MESSAGE 1; BASOPHIL # 0.1 10^3/ul (0.0-0.1); BASOPHILS % 0.6 % (0.0-2.0); EOSINOPHILS % 5.1 % (0.0-7.0); HEMATOCRIT 33.5 % (42.0-52.0); HEMOGLOBIN 11.7 g/dl (14.0-18.0); LYMPHOCYTES # 2.9 10^3/ul (0.8-2.9); LYMPHOCYTES % 15.4 % (15.0-51.0); MEAN CORPUSCULAR HGB CONC 34.9 g/dl (32.0-37.0); MEAN CORPUSCULAR VOLUME 85.9 fl (82.0-101.0); MEAN PLATELET VOLUME 8.6 fl (7.4-10.4); MONOCYTE # 1.7 10^3/ul (0.3-0.9); NEUTROPHIL # 12.5 10^3/ul (1.6-7.5); NEUTROPHILS % 65.5 % (39.0-77.0); PLATELET COUNT 471 10^3/UL (140-415); POSITIVE DIFF @See below; RED CELL DISTRIBUTION WIDTH 14.1 % (11.5-14.5)
[2018-07-22 05:46] LABS: PHOSPHORUS 3.8 mg/dl (2.5-4.9)
[2018-07-22 05:46] LABS: MAGNESIUM 1.8 mg/dl (1.7-2.5)
[2018-07-22 06:21] LABS: ANION GAP 9 (5-13); BLOOD UREA NITROGEN 6 mg/dl (7-20); CALCIUM 9.1 mg/dl (8.4-10.2); CARBON DIOXIDE 29 mmol/L (21-31); CHLORIDE 100 mmol/L (97-110); CREATININE 0.56 mg/dl (0.61-1.24); GLUCOSE 116 mg/dl (70-220); POTASSIUM 3.8 mmol/L (3.5-5.1); SODIUM 138 mmol/L (135-144)
[2018-07-22] MEDS: INSULIN ASPART [NOVOLOG] 3 ML PEN SC ×4 (08:00→20:42)
[2018-07-22] MEDS: FERROUS SULFATE (EC) 325 MG TAB PO ×2 (08:18→20:43)
[2018-07-22] MEDS: DOCUSATE SODIUM 100 MG CAP PO ×2 (08:18→20:43)
[2018-07-22] MEDS: FAMOTIDINE 20 MG TAB PO ×2 (08:18→20:43)
[2018-07-22] MEDS: FLUCONAZOLE 100 MG TAB PO (08:18)
[2018-07-22] MEDS: ASCORBIC ACID 500 MG TAB PO (08:18)
[2018-07-22] MEDS: REPAGLINIDE 1 MG TAB PO ×3 (08:19→17:35)
[2018-07-22] MEDS: BENAZEPRIL 40 MG TAB PO (08:21)
[2018-07-22] MEDS: AMLODIPINE 5 MG TAB PO (08:21)
[2018-07-22] MEDS: POLYETHYLENE GLYCOL 17 GM PACKET PO (08:23)
[2018-07-22] MEDS: PIOGLITAZONE 15 MG TAB PO (08:23)
[2018-07-22] MEDS: INSULIN GLARGINE [LANTus] (100 UNITS/ML) SYG SC (20:40)
[2018-07-22] MEDS: ATORVASTATIN 10 MG TAB PO (20:43)
[2018-07-22] MEDS: ACETAMINOPHEN 325 MG TAB PO (21:34)
[2018-07-23] MEDS: PIPER-TAZO 3.375 GM IV (PMX) 100 ML IVPB ×3 (00:26→11:57)
[2018-07-23] MEDS: ACCU-CHEK XX ×4 (01:14→16:52)
[2018-07-23] MEDS: oxyCODONE 5 MG TAB PO ×3 (03:04→13:14)
[2018-07-23] MEDS: ACETAMINOPHEN 325 MG TAB PO (05:00)
[2018-07-23 06:34] LABS: ADD MAN DIFF? NO
[2018-07-23 06:37] LABS: WHITE BLOOD COUNT 17.2 10^3/ul (4.8-10.8)
[2018-07-23 06:37] LABS: ABNORMAL IP MESSAGE 1; BASOPHIL # 0.1 10^3/ul (0.0-0.1); BASOPHILS % 0.6 % (0.0-2.0); EOSINOPHILS # 0.8 10^3/ul (0.0-0.5); EOSINOPHILS % 4.4 % (0.0-7.0); HEMATOCRIT 34.7 % (42.0-52.0); HEMOGLOBIN 11.6 g/dl (14.0-18.0); LYMPHOCYTES # 2.9 10^3/ul (0.8-2.9); MEAN CORPUSCULAR HEMOGLOBIN 29.3 pg (29.0-33.0); MEAN CORPUSCULAR HGB CONC 33.4 g/dl (32.0-37.0); MEAN CORPUSCULAR VOLUME 87.6 fl (82.0-101.0); MEAN PLATELET VOLUME 8.6 fl (7.4-10.4); MONOCYTE # 1.5 10^3/ul (0.3-0.9); MONOCYTES % 8.9 % (0.0-11.0); NEUTROPHIL # 11.2 10^3/ul (1.6-7.5); NEUTROPHILS % 65.2 % (39.0-77.0); PLATELET COUNT 495 10^3/UL (140-415); POSITIVE DIFF @See below; RED BLOOD COUNT 3.96 10^6/ul (4.70-6.10); RED CELL DISTRIBUTION WIDTH 14.1 % (11.5-14.5)
[2018-07-23 07:03] LABS: PHOSPHORUS 3.7 mg/dl (2.5-4.9)
[2018-07-23 07:03] LABS: MAGNESIUM 1.8 mg/dl (1.7-2.5)
[2018-07-23 07:07] LABS: ANION GAP 10 (5-13); BLOOD UREA NITROGEN 7 mg/dl (7-20); CALCIUM 8.8 mg/dl (8.4-10.2); CARBON DIOXIDE 26 mmol/L (21-31); CHLORIDE 101 mmol/L (97-110); CREATININE 0.52 mg/dl (0.61-1.24); GLUCOSE 197 mg/dl (70-220); SODIUM 137 mmol/L (135-144)
[2018-07-23] MEDS: PIOGLITAZONE 15 MG TAB PO (08:21)
[2018-07-23] MEDS: FERROUS SULFATE (EC) 325 MG TAB PO (08:21)
[2018-07-23] MEDS: AMLODIPINE 5 MG TAB PO (08:22)
[2018-07-23] MEDS: BENAZEPRIL 40 MG TAB PO (08:22)
[2018-07-23] MEDS: REPAGLINIDE 1 MG TAB PO ×2 (08:22→11:57)
[2018-07-23] MEDS: DOCUSATE SODIUM 100 MG CAP PO (08:22)
[2018-07-23] MEDS: FAMOTIDINE 20 MG TAB PO (08:23)
[2018-07-23] MEDS: FLUCONAZOLE 100 MG TAB PO (08:23)
[2018-07-23] MEDS: INSULIN ASPART [NOVOLOG] 3 ML PEN SC ×3 (08:23→16:52)
[2018-07-23] MEDS: ASCORBIC ACID 500 MG TAB PO (08:23)
[2018-07-23] MEDS: POLYETHYLENE GLYCOL 17 GM PACKET PO (09:00)
[2018-07-23] MEDS: REPAGLINIDE 2 MG TAB PO (16:47)
[2018-07-23] MEDS: AMOXICILLIN/CLAV 875 MG TAB PO (16:48)
[2018-07-23] MEDS: CLINDAMYCIN 150 MG CAP PO (16:48)
[2018-07-23] MEDS ORDERED: INSULIN GLARGINE [LANTus] (100 UNITS/ML) SYG SC (20:00)
[2018-07-23] MEDS ORDERED: LACTOBACILLUS RHAMNOSUS CAP PO (21:00)
== END 2018-07-23 18:33 | disposition home health service (06) | DRG 853 ==
LOC: E/R 21:19 → PP2 07-12 07:03
PROC: 0DQQ7ZZ Repair Anus, Via Natural or Artificial Opening (ICD-10-PCS; principal; 2018-07-15 15:30)
PROC: 0D9Q0ZZ Drainage of Anus, Open Approach (ICD-10-PCS; 2018-07-15 15:30)
PROC: 06BY0ZC Excision of Hemorrhoidal Plexus, Open Approach (ICD-10-PCS; 2018-07-15 15:30)
PROC: 0DU Gastrointestinal System, Supplement (ICD-10-PCS; 2018-07-15 15:30)
PROC: 0DBQ0ZZ Excision of Anus, Open Approach (ICD-10-PCS; 2018-07-15 15:30)
PROC: 0W9M0ZZ Drainage of Male Perineum, Open Approach (ICD-10-PCS; 2018-07-15 15:56)
DX: A41.9 Sepsis, unspecified organism (principal); J18.9 Pneumonia, unspecified organism; D62 Acute posthemorrhagic anemia; I50.32 Chronic diastolic (congestive) heart failure; K61.0 Anal abscess; L03.315 Cellulitis of perineum; L02.215 Cutaneous abscess of perineum; I10 Essential (primary) hypertension; E11.65 Type 2 diabetes mellitus with hyperglycemia; E78.5 Hyperlipidemia, unspecified; E87.6 Hypokalemia; D50.0 Iron deficiency anemia secondary to blood loss (chronic); E66.9 Obesity, unspecified; K64.8 Other hemorrhoids; Z68.34 Body mass index [BMI] 34.0-34.9, adult
CPT/HCPCS: 36415; 71045; 74177; 76870; 80048; 80053; 80061; 80202; 81003; 82728; 82962; 83036; 83540; 83605; 83735; 84100; 84484; 85025; 85610; 85730; 86803; 87040; 87070; 87086; 88304; 93005; 93306; 96374; 96375; 99285-25

== ENCOUNTER 2019-02-28 11:18 | Day surgery (SDC) | payer OTHER ==
[2019-02-28] MEDS ORDERED: PROPOFOL 20 ML (13:04)
[2019-02-28] MEDS ORDERED: FENTAnyl 50 MCG/ML VIAL (13:14)
== END 2019-02-28 14:48 | disposition home or self-care (01) ==
LOC: GIL 11:18
DX: Z12.11 Encounter for screening for malignant neoplasm of colon (principal); K64.8 Other hemorrhoids; K64.4 Residual hemorrhoidal skin tags; E11.9 Type 2 diabetes mellitus without complications; I10 Essential (primary) hypertension; Z79.82 Long term (current) use of aspirin; Z79.84 Long term (current) use of oral hypoglycemic drugs
CPT/HCPCS: 45378; 82962